=== PATIENT | female | born 1965 | race Caucasian/White ===

== ENCOUNTER 2017-04-04 09:55 | Day surgery (SDC) | payer OTHER ==
[~2017-04-04 09:55] MED LIST: FENTANYL 100MCG/2ML SOL ONE; LIDOCAINE HCL 1% MPF SOL ONE; PROPOFOL 500 MG/50 ML EMU IV ONE
[2017-04-04] MEDS ORDERED: BUPIVACAINE/EPI 0.5% 10 ML SOL INFIL ONE ×2 (11:01)
[2017-04-04 12:26] VITALS: BP 123/80; PULSE 65; RESP 17; TEMP 97.8; O2SAT 100
== END 2017-04-04 13:00 | disposition home or self-care (01) | DRG 601 ==
LOC: SURG 09:55
PROVIDERS: ATTEND Surgery
DX: N60.82 Other benign mammary dysplasias of left breast (principal); N61.0 Mastitis without abscess
CPT/HCPCS: 87070; 87075; 87077; 87186; 99001; J3010; A6402; J2001; J2704

== ENCOUNTER 2017-08-06 07:56 | Day surgery (SDC) | payer OTHER ==
[~2017-08-06 07:56] MED LIST changes: -FENTANYL 100MCG/2ML SOL ONE; -LIDOCAINE HCL 1% MPF SOL ONE
[2017-08-06] MEDS ORDERED: GLYCOPYRROLATE 0.2 MG/ML SOL ONE (09:15)
[2017-08-06 10:08] VITALS: BP 126/61; PULSE 63; RESP 20; TEMP 97.1; O2SAT 100
== END 2017-08-06 10:20 | disposition home or self-care (01) | DRG 951 ==
LOC: SURG 07:56
PROVIDERS: ATTEND Surgery
DX: Z12.11 Encounter for screening for malignant neoplasm of colon (principal)
CPT/HCPCS: J7643; J2704